=== PATIENT | female | born 1930 | race Caucasian/White ===

== ENCOUNTER 2019-05-15 10:46 | Observation (INO) | payer MEDICARE ==
[2019-05-15 11:53] LABS: ALT (SGPT) 11 U/L (8-55); AST (SGOT) 17 U/L (5-34); Albumin 3.6 g/dL (3.4-4.8); Alkaline Phosphatase 110 U/L (40-150); Anion Gap 14 mmol/L (10-20); BUN (Urea Nitrogen) 27 mg/dL (9.8-20.1); Bilirubin, Total 0.3 mg/dL (0.2-1.2); Calc. Creatinine Clearance 0 mL/min (70-130); Calcium 9.1 mg/dL (7.8-10.44); Carbon Dioxide 21 mmol/L (23-31); Chloride 110 mmol/L (98-107); Estimated GFR-MDRD 26; Globulin 3.3 g/dL (2.4-3.5); Glucose 98 mg/dL (83-110); Potassium 4.9 mmol/L (3.5-5.1); Protein, Total 6.9 g/dL (6.0-8.3); Sodium 140 mmol/L (136-145)
[2019-05-15 11:57] LABS: #Basophils 0.1 thou/uL (0.0-0.2); #Eosinphils 0.2 thou/uL (0.0-0.7); #Lymphocytes 1.5 thou/uL (1.20-3.40); #Monocytes 0.7 thou/uL (0.11-0.59); %Basophils 1.4 % (0.0-1.0); %Eosinophils 3.1 % (0.0-10.0); %Lymphocytes 20.3 % (21.0-51.0); %Monocytes 8.7 % (0.0-10.0); %Neutrophils 66.6 % (42.0-75.0); MDiff Complete? YES; Macrocytosis SLIGHT = 6-15 cells (100X) (0-5/hpf); Mean Corpuscular HGB CONC 29.8 g/dL (32.0-36.0); Mean Corpuscular Hemoglobin 30.9 pg (27.0-31.0); Mean Platelet Volume 7.2 fL (7.4-10.4); Microcytosis SLIGHT = 6-15 cells (100X) (0-5/hpf); Platelet Count 210 thou/uL (130-400); RBC Distribution Width 15.8 % (11.5-14.5); Red Blood Cell (RBC) Count 2.26 mill/uL (4.20-5.40); White Blood Cell (WBC) Count 7.5 thou/uL (4.8-10.8)
[2019-05-15 12:16] LABS: Bilirubin Negative (Negative); Blood, Urine Small (Negative); Clarity Cloudy (Clear); Glucose, Urine (Dipstick) Negative (Negative); Leukocyte Large (Negative); Nitrite Negative (Negative); Protein, Urine (Dipstick) 100 mg/dL (Neg-Trace); Specific Gravity, Urine 1.015 (1.005-1.030); Urobilinogen 0.2 mg/dL (0.2-1.0)
[2019-05-15 12:20] LABS: Bacteria/HPF 1+ HPF (None Seen); Crystals/HPF None Seen HPF (Negative); Hyaline Casts/LPF NONE SEEN LPF (0-3 Hyaline); Other Casts/LPF None Seen LPF (0-3 Hyaline); Oval Fat Bodies/HPF None Seen HPF (None Seen); Renal Epithelial None Seen HPF (0-3); Sperm/HPF None Seen HPF (None Seen); Squamous Epithelial 0-3 HPF (0-3); Transitional Epithelial NONE SEEN HPF (0-3); Trichomonas/HPF None Seen HPF (None Seen); Yeast-All Forms None Seen HPF (None Seen)
[2019-05-15] MEDS ORDERED: cefTRIAXone\\ROCEPHIN 1 GM VIAL ONE (12:43)
[2019-05-15] MEDS ORDERED: Sodium Chloride 0.9% 100 ML ONE (12:43)
[2019-05-15] MEDS ORDERED: cloNIDine 0.1 MG TAB ONE (14:02)
[2019-05-15 16:16] VITALS: BMI 27.3
[2019-05-15] MEDS ORDERED: HYDROcodone/Acetaminophen 5/325 mg Tablet PO PRN ×2 (16:33)
[2019-05-15] MEDS ORDERED: Ondansetron ODT 4 MG TAB SL PRN (16:33)
[2019-05-15] MEDS ORDERED: Acetaminophen 325 MG TAB PO PRN (16:33)
[2019-05-15] MEDS ORDERED: Ondansetron PF 4 MG/2 ML Vial IVP PRN (16:33)
[2019-05-15] MEDS ORDERED: Acetaminophen 325 MG TAB PO SCH (16:45)
[2019-05-15] MEDS ORDERED: Dextrose 5 %-0.45 % NaCl 1,000 ML IV SCH (16:45)
[2019-05-15] MEDS ORDERED: Furosemide 40 MG/4 ML VIAL SLOW IVP SCH (16:45)
[2019-05-15] MEDS ORDERED: diphenhydrAMINE 12.5 MG/5 ML UDCUP PO SCH (16:45)
[2019-05-15] MEDS ORDERED: diphenhydrAMINE 12.5 MG/5 ML UDCUP ONE (17:03)
[2019-05-16 03:24] LABS: #Basophils 0.1 thou/uL (0.0-0.2); #Eosinphils 0.5 thou/uL (0.0-0.7); #Lymphocytes 2.3 thou/uL (1.20-3.40); #Monocytes 0.9 thou/uL (0.11-0.59); #Neutrophils 6.7 thou/uL (1.40-6.50); %Basophils 1.2 % (0.0-1.0); %Eosinophils 4.6 % (0.0-10.0); %Lymphocytes 22.1 % (21.0-51.0); %Monocytes 8.2 % (0.0-10.0); %Neutrophils 63.9 % (42.0-75.0); Hemoglobin 9.7 g/dL (12.0-16.0); Mean Corpuscular HGB CONC 32.1 g/dL (32.0-36.0); Mean Corpuscular Hemoglobin 31.6 pg (27.0-31.0); Mean Corpuscular Volume 98.5 fL (78.0-98.0); Mean Platelet Volume 7.6 fL (7.4-10.4); Platelet Count 206 thou/uL (130-400); RBC Distribution Width 15.6 % (11.5-14.5); Red Blood Cell (RBC) Count 3.07 mill/uL (4.20-5.40); White Blood Cell (WBC) Count 10.5 thou/uL (4.8-10.8)
[2019-05-16] MEDS ORDERED: Vitamin E 400 UNITS CAP PO SCH (09:00)
[2019-05-16] MEDS ORDERED: Losartan Potassium 50 MG TAB PO SCH (09:00)
[2019-05-16] MEDS ORDERED: CRANBERRY EXTRACT 400 MG PO SCH (09:00)
[2019-05-16] MEDS ORDERED: Ascorbic Acid 500 mg Chewable Tablet PO SCH (09:00)
[2019-05-16] MEDS ORDERED: Multivit, Therapeutic 1 TAB PO SCH (09:00)
[2019-05-16 09:38] VITALS: TEMP 97.5
[2019-05-16 09:49] VITALS: BP 184/76
[2019-05-16] MEDS ORDERED: cloNIDine 0.1 MG TAB PO SCH (10:00)
[2019-05-16 12:28] LABS: Iron 26 ug/dL (50-170); Iron Binding Capacity, Total 368 mcg/dL (265-497)
[2019-05-16 12:41] LABS: Reticulocyte Count 3.9 % (0.5-1.5)
--- NOTE | 2019-05-16 13:48 | HP ---
Observation admission with same-day discharge. CHIEF COMPLAINT: Weakness. HISTORY OF PRESENT ILLNESS: An 88-year-old female, who presented to the [facility] Emergency Department yesterday afternoon with complaints of generalized weakness. Workup reveals the patient's hemoglobin to be low at 7.0. The patient has chronic low back pain and reports to have been taking Aleve 3 times a day, which likely contributed to this finding. She is on chronic iron supplementation and states her stools are normally dark appearing. She denies having any abdominal pain. The patient was admitted, typed and crossed for 2 units, which she received overnight. As of this morning, her hemoglobin has appropriately risen to a level of 9.7. She feels much improved, and feels appropriate to discharge back to her home. The patient's blood pressure has notably been elevated during her stay and thus, amlodipine will be added to her blood pressure medication regimen. In addition to this, the patient had an incidental finding of urinary tract infection. I will send her home on a course of cephalexin and will follow up the urine culture. PAST MEDICAL HISTORY: Includes hypertension, chronic back pain. SURGICAL HISTORY: Appendectomy, tonsillectomy, hysterectomy, carpal tunnel release, rotator cuff repair, cervical fusion, cataract replacements, revision total knee arthroplasty on the right. SOCIAL HISTORY: The patient is a nonsmoker with no EtOH or illicit drug use. ALLERGIES: NO KNOWN DRUG ALLERGIES. FAMILY HISTORY: Noncontributory. CURRENT MEDICATIONS: Includes, 1. Losartan 100 mg daily. 2. Vitamin C 500 mg daily. 3. Cholecalciferol 1000 units p.o. daily. 4. Cranberry extract 400 mg daily. 5. Multivitamin daily. 6. Vitamin E 400 units daily. REVIEW OF SYSTEMS: GENERAL: The patient denies fever, chills, or diaphoresis. EAR, NOSE, AND THROAT: Denies sore throat, nasal drainage, or congestion. CARDIOVASCULAR: Denies chest pain or palpitations. RESPIRATORY: Denies shortness of breath or cough. GASTRO: Denies abdominal pain, nausea, vomiting, diarrhea, or constipation. GENITOURINARY: Denies dysuria. MUSCULOSKELETAL: Denies joint swelling. DERM: Denies rash. NEURO: Denies headache. LABORATORY DATA: White blood cell count of 10.5, hemoglobin has risen from 7 to 9.7, hematocrit has risen from 23.4 to 30.3, platelets are 206. Sodium is 140, potassium 4.9, BUN is 27, creatinine 1.84, GFR is 26. AST and ALT are 17 and 11. TSH is 1.2817. Urine shows large leukocyte esterase. PHYSICAL EXAMINATION: VITAL SIGNS: Temperature is 97.9, pulse is 66, respiratory rate is 16, oxygen 94% on room air. Blood pressure is 154/84. GENERAL: The patient is alert and oriented, in no acute distress. EYES: Extraocular muscles are intact bilaterally. HEAD, EYES, EARS, NOSE, AND THROAT: Within normal limits. NECK: Supple with no lymphadenopathy. CARDIOVASCULAR: Regular rate and rhythm with 2/6 murmur. RESPIRATORY: Clear to auscultation. GASTROINTESTINAL: Soft, nontender to palpation. EXTREMITIES: No clubbing, cyanosis, or edema. SKIN: Shows no rashes. NEUROLOGIC: Nonfocal with cranial nerves 2 through 12 grossly intact. ASSESSMENT AND PLAN: 1. Symptomatic anemia. The patient has received 2 units of packed red blood cells with normalization of her hemoglobin level back to her baseline. The patient has been advised discontinuance of NSAIDs and Tylenol in place of this. She will continue her iron supplementation and will repeat hemoglobin level in the clinical setting in a week and assess whether the patient needs to follow up with GI. 2. Urinary tract infection. We will discharge the patient on a course of p.o. Keflex and follow up her urine culture. 3. Hypertension. Blood pressure has been a little elevated here. We will add amlodipine to her regimen of losartan. 4. Chronic low back pain. I advised Tylenol in place of NSAIDs. 5. Stage 4 chronic kidney disease. Encourage the patient to improve hydration at home. DISPOSITION: The patient was discharged to her home at this time with 3 new medications being Protonix 40 mg p.o. daily, amlodipine 5 mg p.o. daily, and Keflex 500 mg p.o. b.i.d. x5 days. She will resume her usual medications, otherwise other than taking NSAIDs. Job ID: [id number]
== END 2019-05-16 10:29 | disposition home or self-care (01) ==
LOC: BURERS 10:46 → BURMED 13:45
PROVIDERS: ADMIT Family Medicine; ATTEND Family Medicine
DX: I12.9 Hypertensive chronic kidney disease with stage 1 through stage 4 chronic kidney disease, or unspecified chronic kidney disease (principal); N18.4 Chronic kidney disease, stage 4 (severe); D63.1 Anemia in chronic kidney disease; N39.0 Urinary tract infection, site not specified; G89.29 Other chronic pain; M54.5 Low back pain; Z79.899 Other long term (current) drug therapy; Z98.890 Other specified postprocedural states
CPT/HCPCS: 36415; 36430; 80053; 81003; 81015; 82274; 82728; 83540; 83550; 84443; 85025; 85046; 86850; 86900; 86901; 86922; 87086; 96361; 96365; G0378; J0696; J1940; J3490; P9016; Q0163